=== PATIENT | male | born 1995 | race Caucasian/White ===

== ENCOUNTER → 2019-12-25 | Outpatient (CLI) | payer OTHER | LOC: LAB 16:15 | DX: M1A.4 Other secondary chronic gout (principal) ==

== ENCOUNTER → 2020-01-04 | Outpatient (CLI) | payer OTHER | LOC: LAB 17:18 | DX: M1A.4 Other secondary chronic gout (principal); K59.01 Slow transit constipation ==

== ENCOUNTER → 2020-01-20 | Outpatient (CLI) | payer OTHER | LOC: RAD 08:15 | DX: M79.674 Pain in right toe(s) (principal); M79.89 Other specified soft tissue disorders ==

== ENCOUNTER → 2020-06-24 | Outpatient (CLI) | payer OTHER ==
[2020-06-24 15:58] LABS: BASO # 0.1 (0.02-0.10); EOS # 0.1 (0.04-0.40); EOS % 1.4 % (0.0-4.0); HEMATOCRIT 47.6 % (42.0-52.0); HEMOGLOBIN 15.6 g/dL (13.5-18.0); LYMPH# 3.3 (1.50-4.00); MEAN CELL VOLUME 84 fl (78-100); MEAN CORPUSCULAR HEMOGLOBIN 28 pg (27-31); MEAN CORPUSCULAR HGB CONC 33 g/dL (33-37); MEAN PLATELET VOLUME 9.5 fl (7.4-10.4); MONO # 0.4 (0.20-0.80); NEU # 5.4 (1.40-6.50); PLATELET COUNT 310 K/mm3 (130-400); RED BLOOD COUNT 5.67 M/mm3 (4.20-5.60); RED CELL DISTRIBUTION WIDTH 14.9 % (11.5-14.5); WHITE BLOOD COUNT 9.3 K/mm3 (4.8-10.8)
[2020-06-24 16:06] LABS: ALBUMIN 4.7 g/dL (3.5-5.0); POTASSIUM 4.4 mmol/L (3.5-5.1)
[2020-06-24 16:07] LABS: CALCIUM 9.7 mg/dL (8.3-10.5)
[2020-06-24 16:10] LABS: TOTAL BILIRUBIN 0.6 mg/dL (0.2-1.2)
== END ==
LOC: LAB 15:45
PROVIDERS: Family Medicine
DX: R25.3 Fasciculation (principal)

== ENCOUNTER → 2020-08-15 | Outpatient (CLI) | payer OTHER ==
[2020-08-15 16:37] LABS: ALBUMIN 4.6 g/dL (3.5-5.0)
[2020-08-15 16:39] LABS: TOTAL PROTEIN 7.9 g/dL (6.4-8.3)
[2020-08-15 16:41] LABS: TOTAL BILIRUBIN 0.5 mg/dL (0.2-1.2)
[2020-08-15 16:45] LABS: DIRECT BILIRUBIN 0.2 mg/dL (0.0-0.5)
== END ==
LOC: LAB 16:05
PROVIDERS: Family Medicine
DX: K75.9 Inflammatory liver disease, unspecified (principal)

== ENCOUNTER → 2020-08-19 | Outpatient (CLI) | payer OTHER ==
[2020-08-20 19:03] LABS: HEPATITIS C ANTIBODY Negative (Negative)
== END ==
LOC: LAB 15:06
PROVIDERS: Family Medicine
DX: K75.9 Inflammatory liver disease, unspecified (principal); R25.3 Fasciculation; R79.89 Other specified abnormal findings of blood chemistry

== ENCOUNTER → 2020-08-23 | Outpatient (CLI) | payer OTHER | LOC: RAD 08:40 | DX: K76.0 Fatty (change of) liver, not elsewhere classified (principal); K75.9 Inflammatory liver disease, unspecified; R78.9 Finding of unspecified substance, not normally found in blood; Z68.31 Body mass index [BMI] 31.0-31.9, adult ==

== ENCOUNTER → 2020-09-08 | Outpatient (CLI) | payer OTHER | LOC: RAD 16:13 | DX: R25.3 Fasciculation (principal); R29.898 Other symptoms and signs involving the musculoskeletal system; Z82.0 Family history of epilepsy and other diseases of the nervous system | CPT/HCPCS: A9585 ==